=== PATIENT | female | born 1975 | race Caucasian/White ===

== ENCOUNTER 2017-02-15 20:40 | Emergency (ER) | payer OTHER ==
[~2017-02-15] VITALS: Ht 160 cm; Wt 104.3 kg
[~2017-02-15 20:40] MED LIST: AMITRIPTYLINE H25 MG PO; ARIPIPRAZOLE2 MG PO; BACLOFEN10 MG PO; BUPROPION XL300 MG PO; BUSPIRONE HCL30 MG PO; FLEXERIL10 MG PO; GABAPENTIN300 MG PO; MELOXICAM15 MG PO; PRAZOSIN HCL2 MG PO; TRAMADOL HCL50 MG PO; VENLAFAXINE HC150 MG PO; VENLAFAXINE HCL75 MG PO; VICODIN 5-5001 EACH PO; ZOLOFT50 MG PO
[2017-02-15] MEDS ORDERED: ABILIFY2 MG PO (20:56)
[2017-02-15] MEDS ORDERED: HYDROXYZINE HCL50 MG PO (20:57)
[2017-02-15] MEDS ORDERED: BUSPIRONE HCL30 MG PO (20:57)
[2017-02-15] MEDS ORDERED: MINIPRESS2 MG PO (20:57)
[2017-02-15] MEDS ORDERED: WELLBUTRIN XL300 MG PO (20:58)
[2017-02-15] MEDS ORDERED: SEROQUEL50 MG PO (21:01)
[2017-02-15] MEDS ORDERED: ZANAFLEX2 M1 PO (21:01)
[2017-02-15] MEDS ORDERED: OXAYDO7.5 MG PO (21:02)
[2017-02-15] MEDS ORDERED: SENNA LAX8.6 MG PO (21:02)
== END 2017-02-16 00:11 | disposition home or self-care (01) ==
LOC: ED 20:40
DX: Z76.0 Encounter for issue of repeat prescription (principal); F41.9 Anxiety disorder, unspecified; F32.9 Major depressive disorder, single episode, unspecified; Z90.710 Acquired absence of both cervix and uterus; Z90.89 Acquired absence of other organs; Z98.51 Tubal ligation status; Z79.899 Other long term (current) drug therapy
CPT/HCPCS: 99283

== ENCOUNTER 2019-04-10 07:50 | Day surgery (SDC) | payer OTHER ==
[~2019-04-10] VITALS: Ht 160 cm; Wt 100.7 kg
[~2019-04-10 07:50] MED LIST changes: +ABILIFY2 MG PO; +CALCIUM600 MG PO; +CYMBALTA60 MG PO; +HYDROXYZINE HCL50 MG PO; +HYDROXYZINE PAM50 MG PO; +MINIPRESS2 MG PO; +OXAYDO7.5 MG PO; +SENNA LAX8.6 MG PO; +SEROQUEL50 MG PO; +VENTOLIN HFA18 GM INH; +VISTARIL25 MG PO; +WELLBUTRIN XL300 MG PO; +ZANAFLEX2 M1 PO
--- NOTE | 2019-04-10 09:45 | NUR ---
04/10/19 0945 Delores Camejo 0920 PT ARRIVED IN PACU AWAKE WITH NO C/O'S. ABD SOFT. 0930 SITTING UP IN BED SIPPING ON WATER. NO C/O'S. 0940 PT GETTING DRESSED. 45 DC INSTRUCTIONS GIVEN.
--- NOTE | 2019-04-11 07:27 | OR ---
[facility] [address] [place], [place] [address] Signed DATE OF OPERATION: 04/10/2019 SURGEON: Jose A Gillette MD PREOPERATIVE DIAGNOSES: 1. Father with colon cancer in early 40s. 2. Siblings with colonic polyps. 3. Personal history of colonic polyps at age 36 and 39. 4. Generalized abdominal pain. POSTOPERATIVE DIAGNOSIS: Minimal internal hemorrhoids. PROCEDURE: Colonoscopy without biopsy. ESTIMATED BLOOD LOSS: None. INDICATIONS: Ivone is a 44-year-old female whose father was unfortunately diagnosed and of his colon cancer in his early 40s. She has brothers and sisters who had colonic polyps removed as well. She herself had her 1st colonoscopy at age 36 with colonic polyps removed. She then had additional polyps removed at age 39. She returns now for followup colonoscopy. She told me she is a little worried because she is having some generalized abdominal pain. I gave her a pamphlet on colonoscopy in the office. She is very familiar with that procedure. She understands the risk including, but not limited to gas, bloating, crampy abdominal pain, bleeding, perforation requiring surgery, and missed diagnosis. She has done well with Versed and fentanyl in the past. She expressed understanding and wished to proceed. PROCEDURE NOTE: Ivone was taken into our endoscopy suite and placed in the left lateral decubitus position. She was given 6 mg of Versed and 150 mcg of fentanyl to cover the case. A digital rectal exam was performed and this was unremarkable. The adult colonoscope was introduced and advanced quite readily into the cecum under direct visualization. Her prep was good. We could easily see the appendiceal orifice and the ileocecal valve. The scope was slowly withdrawn. Multiple pictures were taken throughout for photodocumentation. We saw no additional polyps and no diverticulosis. Upon retroflexion of the scope, she does have [id number] internal hemorrhoid column. Electronically Signed By: JOSE A GILLETTE MD 04/11/19 0727 PATIENT NAME: IVONE LEVINE OPERATIVE REPORT DATE OF : 75 REPORT #: [id number] PHYSICIAN: JOSE A GILLETTE MD PCP: SAAD SCOTT PAC REPORT IS CONFIDENTIAL AND NOT TO BE RELEASED WITHOUT AUTHORIZATION [facility] [address] [place], [place] [address] Signed After this, the gas was suctioned out and colonoscope removed. Ivone tolerated procedure quite well. RECOMMENDATIONS: Ivone can return in 5 years for repeat colonoscopy. MD MILTON Jordan/MODL /[id number] cc: BHUPINDER Oconnor MD Copies: JOSE A GILLETTE MD ~ Electronically Signed By: JOSE A GILLETTE MD 04/11/19 0727 PATIENT NAME: IVONE LEVINE OPERATIVE REPORT DATE OF : 75 REPORT #: [id number] PHYSICIAN: JOSE A GILLETTE MD PCP: SAAD SCOTT PAC REPORT IS CONFIDENTIAL AND NOT TO BE RELEASED WITHOUT AUTHORIZATION
== END 2019-04-10 09:48 | disposition home or self-care (01) ==
LOC: OPS 07:50 → DS 07:50 → OPS 09:00 → DS 09:00 → OPS 09:48
PROVIDERS: Colon & Rectal Surgery
PROC: 0DJD8ZZ Inspection of Lower Intestinal Tract, Via Natural or Artificial Opening Endoscopic (ICD-10-PCS; principal; 2019-04-10 09:00)
DX: K64.8 Other hemorrhoids (principal); E78.5 Hyperlipidemia, unspecified; E66.9 Obesity, unspecified; Z83.71 Family history of colonic polyps; Z86.010 Personal history of colon polyps; Z98.890 Other specified postprocedural states; Z79.899 Other long term (current) drug therapy; Z68.39 Body mass index [BMI] 39.0-39.9, adult
CPT/HCPCS: G0500; J2250; J3010; J7120

== ENCOUNTER 2022-06-08 13:33 | Emergency (ER) | payer OTHER ==
[~2022-06-08] VITALS: Ht 160 cm; Wt 100.7 kg
[2022-06-08] MEDS ORDERED: VILAZODONE HCL40 MG PO (13:50)
--- NOTE | 2022-06-09 15:31 | EKG ---
[facility] [address] [facility] [place] [address] Signed Normal sinus rhythm with sinus arrhythmia Cannot rule out Anterior infarct , age undetermined Abnormal ECG No previous ECGs available Confirmed by LAN VARGHESE MD ([id number]) on 06/09/2022 3:31:27 PM Electronically Signed By: LAN VARGHESE MD 06/09/22 1531 PATIENT NAME: JESU LEVINE Electrocardiogram DATE OF : 75 PHYSICIAN: LAN VARGHESE MD REPORT #: [id number] REPORT IS CONFIDENTIAL AND NOT TO BE RELEASED WITHOUT AUTHORIZATION
== END 2022-06-08 16:29 | disposition home or self-care (01) ==
LOC: ED 13:33
DX: R07.9 Chest pain, unspecified (principal); Z20.822 Contact with and (suspected) exposure to COVID-19; Z79.899 Other long term (current) drug therapy
CPT/HCPCS: 36415; 71045; 80053; 83735; 84484; 85025; 87502; 93005; 93010; 99285-25; C9803; U0003

== ENCOUNTER 2022-09-23 11:44 | Emergency (ER) | payer OTHER ==
[~2022-09-23] VITALS: Ht 160 cm; Wt 88.9 kg
[~2022-09-23 11:44] MED LIST changes: +CLONAZEPAM1 MG PO; +TRIAMCINOLONE A60 M1 TOP; +VILAZODONE HCL40 MG PO
--- OUTSIDE RECORDS SUMMARY | 2022-09-23 11:46 | XMS ---
PreManage Notification: JESU LEVINE Security Commercial Driver'S License Driver Events No recent Security Events currently on file CRITERIA MET - PDMP CARE PROVIDERS -, [place]- Dentist: Court Operations Clerk [facility] PHONE: [phone] SAAD SCOTT Physician [employer] Current PHONE: Unknown SEFERINO DOYLE Nurse Practitioner: Family Current PHONE: [phone] Care Guidelines exist for the following facilities: [facility] ( 12/17/2019 ) Jeff VISIT COUNT (12 MO.) 3 [facility] TOTAL 3 NOTE: Visits indicate total known visits. ED/UCC VISIT TRACKING (12 MO.) 09/23/2022 11:44 [facility] [place] TYPE: Emergency COMPLAINT: - SUICIDAL 07/26/2022 11:31 [facility] [place] TYPE: Emergency COMPLAINT: - R KNEE PAIN 06/08/2022 13:34 [facility] [place] TYPE: Emergency COMPLAINT: - CHEST PAIN, HIGH B/P, BACK PAIN, SOB, HEADACHE DIAGNOSES: - Other assisted (current) drug therapy - Chest pain, unspecified - Contact with and (suspected) exposure to COVID-19 - Dizziness and giddiness INPATIENT VISIT TRACKING (12 MO.) No inpatient visits to display in this time frame [email or web address]
[2022-09-23] MEDS ORDERED: SUMATRIPTAN SU100 MG PO (12:06)
== END 2022-09-23 14:12 | disposition home or self-care (01) ==
LOC: ED 11:44
DX: R45.851 Suicidal ideations (principal)
CPT/HCPCS: 36415; 80053; 81003; 84443; 85025; 99284; G0480

== ENCOUNTER 2024-09-05 08:48 | Day surgery (SDC) | payer OTHER ==
[2024-07-30 13:56] VITALS: BP 117/76
[~2024-09-05] VITALS: Ht 160 cm; Wt 109.1 kg
[~2024-09-05 08:48] MED LIST changes: +IBLOOD GLUCOSE TEST STRIP 1 EA TEST VI PRN; +LACTATED RINGER'S 1,000 ML IV SCH; +LIDOCAINE HCL 1% 5 ML SDV INJ ONE; +METFORMIN HCL PO; +SUMATRIPTAN SU100 MG PO
[2024-09-05 09:03] VITALS: BP 132/91
[2024-09-05] MEDS ORDERED: propofoL 200 MG/20 ML VIAL ONE (10:46)
[2024-09-05] MEDS ORDERED: LACTATED RINGER'S 1,000 ML IV ONE (11:16)
[2024-09-05 12:05] VITALS: BP 123/90
--- NOTE | 2024-09-05 12:58 | OR ---
[facility] [address] [place], [place] [address] Signed DATE OF OPERATION: 09/05/2024 SURGEON: Jose A Gillette MD PREOPERATIVE DIAGNOSES: 1. Siblings with colonic polyps. 2. Father with colon cancer in his early 40s. 3. Personal history of colonic polyps in 2010 at age 36. 4. Chronic constipation associated with rectal bleeding. 5. Hemorrhoids. 6. Chronic generalized abdominal pain. POSTOPERATIVE DIAGNOSES: 1. Minimal internal hemorrhoids. 2. 4 mm polyp at 55 cm in left colon. 3. 4 mm polyp at 28 cm in sigmoid colon. 4. 3 mm polyp at 22 cm in sigmoid colon. PROCEDURE: Colonoscopy with hot biopsy. ESTIMATED BLOOD LOSS: None. INDICATIONS: Ivone is a 49-year-old obese diabetic female, who was asked to see me for a followup colonoscopy. She had her 1st colonoscopy in 2010 at the age of 36 [address] Nixon Gray. She was having rectal bleeding associated with some constipation. She also has several siblings who have colonic polyps. Her father had colon cancer in his early 40s. He a few years later from his colon cancer. She continues to have chronic constipation associated with rectal bleeding. She often complains of generalized abdominal pain and she worries that she is going to get colon cancer like her father. Dr. Gray found a tubular adenomatous polyp in the cecum along with some hemorrhoids. I helped Ivone in 2013 at the age of 39. She had a tubular adenomatous polyp along with two hyperplastic polyps and internal hemorrhoids. She came back in 2019 at age of 44. Again, she was worried about generalized abdominal pain and she had a CT scan which was unremarkable. On her colonoscopy, she again had some internal hemorrhoids. She told me she worries about weight gain. She also uses marijuana every night to help go to sleep because of her PTSD. She comes to the office by herself. She has no lower GI complaints currently. I gave her our brochure on colonoscopy. She understands the Electronically Signed By: JOSE A GILLETTE MD 09/05/24 1258 PATIENT NAME: IVONE LEVINE OPERATIVE REPORT DATE OF : 75 REPORT #: [id number] PHYSICIAN: JOSE A GILLETTE MD PCP: SAAD SCOTT PAC REPORT IS CONFIDENTIAL AND NOT TO BE RELEASED WITHOUT AUTHORIZATION [facility] [address] [place], [place] [address] Signed nature of the test. There is risk including, but not limited to gas bloating, crampy abdominal pain, bleeding, perforation requiring surgery, and missed diagnosis. She also understands the need for monitored anesthesia care given her body mass index, her full round face, heavy neck, chest and abdomen along with her past medical history and her daily use of marijuana. She had expressed understanding and wished to proceed. DESCRIPTION OF PROCEDURE: Ivone was taken into our endoscopy suite and placed in the left lateral decubitus position. She was given monitored anesthesia care with propofol infusion per our nurse chief projectionist. A digital rectal exam was performed. She had good sphincter tone. There were no external hemorrhoids. There were no masses. The adult colonoscope was introduced and advanced quite readily up to the cecum under direct visualization of the camera without difficulty. Her prep was quite excellent as always. We could easily see the appendiceal orifice and the ileocecal valve. The scope was slowly withdrawn. We took several pictures throughout for photodocumentation. We removed three small polyps as documented above with the help of hot biopsy forceps. There was no diverticulosis. Once again, she has minimal internal hemorrhoid columns. The gas was then suctioned out and the colonoscope removed. Ivone tolerated the procedure quite well. RECOMMENDATIONS: I will see Ivone back in my office in the next 7 to 14 days. She will need monitored anesthesia care in the future. She will need to stay on the five year plan given her family and personal history. Jose A Gillette MD ALB/MODL /[id number] cc: JANIE Oconnor MD Electronically Signed By: JOSE A GILLETTE MD 09/05/24 1258 PATIENT NAME: IVONE LEVINE OPERATIVE REPORT DATE OF : 75 REPORT #: [id number] PHYSICIAN: JOSE A GILLETTE MD PCP: SAAD SCOTT PAC REPORT IS CONFIDENTIAL AND NOT TO BE RELEASED WITHOUT AUTHORIZATION [facility] [address] [facility] [place], [place] [address] Signed Copies: JOSE A GILLETTE MD ~ Electronically Signed By: JOSE A GILLETTE MD 09/05/24 1258 PATIENT NAME: IVONE LEVINE OPERATIVE REPORT DATE OF : 75 REPORT #: [id number] PHYSICIAN: JOSE A GILLETTE MD PCP: SAAD SCOTT PAC REPORT IS CONFIDENTIAL AND NOT TO BE RELEASED WITHOUT AUTHORIZATION
--- NOTE | 2024-09-05 13:51 | NUR ---
09/05/24 1350 Isabella Blanco 1124- PT ARRIVES TO THE PACU WTIH AN ORAL AIRWAY ON 10L OF O2 VIA MASK. PT IS COUGHING OFF AND ON. PT IS UNABLE TO FOLLOW DIRECTIONS. ORAL SECRETIONS NOTED IN THE CORNER OF HER MOUTH, ORAL CAVITY SUCTIONED. BREATHING EVEN AND UNLABORED. ABDOMEN IS SOFT AND NONDISTENDED. PT IS COUGHING AND PASSING GAS. LR IS INFUSING IN HER R HAND. PT IS LAYING ON HER LEFT SIDE. ALL MONITORS PUT IN SIDE. 1126- PT IS ABLE TO FOLLOW DIRECTIONS AND OPEND HER MOUTH. ORAL AIRWAY REMOVED. PT IS ABLE TO DENY PAIN AND NAUSEA AND EASILY FALLS BACK TO SLEEP. 1131- PT O2 SATS ARE IN THE MID 90S. PT O2 DECREASED TO 6L VIA MASK. PT IS ABLE TO MAINTAIN SATS ABOVE 90%. 1138- PT IS ENCOURAGED TO COUGH AND DEEP BREATHE AND O2 TURNED OFF AND REMOVED AT THIS TIME. PT CLEANED UP AND NEW CHUCKS PAD PUT IN PLACE. 1147- PT O2 SATS DECREASE TO 89%. PT ENCOURAGED TO COUGH. O2 SATS INCREASE AND SLOWS DECREASE BACK TO 90%. 2L OF O2 VIA NC PUT IN PLACE. 1158- PT IS ABLE TO MAINTAIN O2 SATS ABOVE 90%. PT HOB INCREASED AND O2 TURNED OFF AND REMOVED. PT ABLE TO MAINTAIN SATS. 1209- PT MONITORS REMOVED. IV REMOVED. PT IS ABLE TO SIT UP AT THE SIDE OF THE BED AND DENIES DIZZINESS OR NAUSEA. PT IS ABLE TO DRESS INDEPENDENTLY WITH NO ISSUE. 1210- PT AMBULATES TO WHEELCHAIR WITH A STEADY AND EVEN GAIT. PT HAS ALL BELONGINGS, AND PAPERWORK. PT DENIES QUESTIONS AND CONCERNS FROM DC PAPERWORK THAT ARE GONE OVER. PT DC FROM PACU AT THIS TIME.
--- NOTE | 2024-09-06 14:58 | PATH ---
[facility] [address] [place], [place] [address] Signed SPECIMEN(S): A DESCENDING COLON POLYP AT 55 CM SPECIMEN(S): B SIGMOID COLON POLYP AT 28 CM SPECIMEN(S): C DISTAL SIGMOID COLON POLYP AT 22 CM SPECIMEN SOURCE: A. DESCENDING COLON POLYP AT 55 CM B. SIGMOID COLON POLYP AT 28 CM C. DISTAL SIGMOID COLON POLYP AT 22 CM CLINICAL HISTORY: Personal and family history of colon cancer, internal hemorrhoids FINAL PATHOLOGIC DIAGNOSIS: A. Descending colon polyp at 55 cm: -- Tubular adenoma (one fragment). B. Sigmoid colon polyp at 28 cm: - Hyperplastic polyp (one fragment). C. Distal sigmoid colon polyp at 22 cm: - Tubular adenoma (one fragment). JVR:clv MICROSCOPIC EXAMINATION: Histologic sections of all submitted blocks are examined by light microscopy. These findings, together with the gross examination, support the pathologic diagnosis. GROSS DESCRIPTION: A. The specimen, labeled and designated "W[place], descending colon polyp at 55 cm," is received in formalin and consists of one chau soft tissue fragment, 0.2 cm. Entirely submitted in (A1). B. The specimen, labeled and designated "[place], sigmoid colon polyp at 28 cm," is received in formalin and consists of one chau soft tissue fragment, 0.2 cm. Entirely submitted in (B1). C. The specimen, labeled and designated "W[place]ley, distal sigmoid colon polyp at 22 cm," is received in formalin and consists of one chau soft tissue fragment, 0.2 cm. Entirely submitted in (C1). VB (under the direct supervision of a pathologist) The Gross Description was prepared using a voice recognition system. The report was reviewed for accuracy; however, sound-alike word errors, addition and/or deletions may occur. If there is any question about this report, please contact Client Services. PATIENT NAME: JESU LEVINE PATHOLOGY DATE OF : 75 REPORT #: [id number] PHYSICIAN: [facility] PCP: SAAD SCOTT PAC REPORT IS CONFIDENTIAL AND NOT TO BE RELEASED WITHOUT AUTHORIZATION [facility] [address] [place], [place] [address] Signed PERFORMING LABORATORY: Technical component was performed by [facility], [address] [place] [id number] (CLIA# [id number]). Professional interpretation was performed by [facility] - [facility], [address] [place] [id number] (CLIA#: [id number]). Diagnostician: Jose Alberto De La Cruz MD Pathologist Electronically Signed 09/06/2024 Copies: ~ PATIENT NAME: JESU LEVINE PATHOLOGY DATE OF : 75 REPORT #: [id number] PHYSICIAN: [facility] PCP: SAAD SCOTT PAC REPORT IS CONFIDENTIAL AND NOT TO BE RELEASED WITHOUT AUTHORIZATION
== END 2024-09-05 12:10 | disposition home or self-care (01) ==
LOC: DS 08:48
PROVIDERS: ATTEND Colon & Rectal Surgery
PROC: 0DBN8ZZ Excision of Sigmoid Colon, Via Natural or Artificial Opening Endoscopic (ICD-10-PCS; 2024-09-05)
PROC: 0DBG8ZZ Excision of Left Large Intestine, Via Natural or Artificial Opening Endoscopic (ICD-10-PCS; principal; 2024-09-05 10:00)
DX: Z12.11 Encounter for screening for malignant neoplasm of colon (principal); D12.4 Benign neoplasm of descending colon; D12.5 Benign neoplasm of sigmoid colon; K63.5 Polyp of colon; K64.8 Other hemorrhoids; K59.09 Other constipation; E11.9 Type 2 diabetes mellitus without complications; F31.9 Bipolar disorder, unspecified; E78.5 Hyperlipidemia, unspecified; F43.10 Post-traumatic stress disorder, unspecified; E66.9 Obesity, unspecified; Z68.41 Body mass index [BMI] 40.0-44.9, adult; Z86.0100 Personal history of colon polyps, unspecified; Z79.899 Other long term (current) drug therapy; Z90.49 Acquired absence of other specified parts of digestive tract; Z87.19 Personal history of other diseases of the digestive system; Z83.718 Family history of other colon polyps; Z80.0 Family history of malignant neoplasm of digestive organs
CPT/HCPCS: 00811; 88305; J2704; J7121